=== PATIENT | female | born 1950 | race Caucasian/White ===

== ENCOUNTER 2017-01-10 07:06 | Inpatient (IN) | payer OTHER ==
[2016-12-24 13:21] VITALS: BMI 24.0
--- NOTE | 2016-12-24 13:54 | PAT Medication Instructions ---
Service Date Dec 24, 2016. Current Home Medication List Aspirin (Aspirin Ec), 81 MG PO HS Atorvastatin (Lipitor), 10 MG PO HS Calcium Carbonate-Vitamin D (Calcium + D), 1 TAB PO QAM Coenzyme Q10 (Ubidecarenone) (Co Q-10), 100 MG PO QAM Diclofenac Sodium (Topical) (Pennsaid), 1 DOSE TOP UD PRN for KNEE Flaxseed (Linseed) (Flaxseed Oil), 1 CAP PO BID Hydrocodone/Acetaminophen 5MG/325MG ([place] 5MG/325MG), 0.5 TABLET PO QID PRN for Pain Hydroxyzine Pamoate (Vistaril), 1 CAP PO HS PRN for Sleep Levothyroxine Sodium (Levothyroxine Sodium), 1 TAB PO QAM [Sun Chlorella], 6 TAB PO BID Medication Instructions For Your Scheduled Surgery - Hold the following medications 10 days prior to surgery: Sun Chlorella 6 TAB PO BID Flaxseed (Linseed) (Flaxseed Oil), 1 CAP PO BID Coenzyme Q10 (Ubidecarenone) (Co Q-10), 100 MG PO QAM - Hold the following medications 24 hours prior to surgery: Diclofenac Sodium (Topical) (Pennsaid), 1 DOSE TOP UD PRN for KNEE - Hold the following medications the morning of surgery: Calcium Carbonate-Vitamin D (Calcium + D), 1 TAB PO QAM - Take the following medications the morning of surgery with a sip of water: Levothyroxine Sodium (Levothyroxine Sodium), 1 TAB PO QAM Hydrocodone/Acetaminophen 5MG/325MG ([place] 5MG/325MG), 0.5 TABLET PO QID PRN for Pain (can take up to four hours prior to surgery if needed) - Take the following medications as scheduled the night before surgery: Hydroxyzine Pamoate (Vistaril), 1 CAP PO HS PRN for Sleep Hydrocodone/Acetaminophen 5MG/325MG ([place] 5MG/325MG), 0.5 TABLET PO QID PRN for Pain Atorvastatin (Lipitor), 10 MG PO HS Aspirin (Aspirin Ec), 81 MG PO HS If you have any questions please call us at [phone] or [phone] ( [place]) or [phone]
[2016-12-24 14:27] LABS: BASO % 0.6 %; BASO ABS # 0.04 K/uL (0-0.2); COMPLETE YES; EOS % 0.9 %; HEMATOCRIT 43.5 % (37-47); IG% 0.3 %; MEAN CELL VOLUME 91.6 fL (80-100); MEAN CORPUSCULAR HEMOGLOBIN 30.3 pg (25-34); MEAN CORPUSCULAR HGB CONC 33.1 g/dl (32-36); MEAN PLATELET VOLUME 9.7 fL (7.4-10.4); MONO % 6.1 %; NEUT % 59.1 %; PLATELET COUNT 213 K/uL (130-400); RED BLOOD COUNT 4.75 M/uL (4.2-5.4); WHITE BLOOD COUNT 6.36 K/uL (4.8-10.8)
[2016-12-24 14:35] LABS: INR 1.1 (0.9-1.1)
[2016-12-24 14:46] LABS: BUN/CREATININE RATIO 16.9 (10-20); CALCIUM 9.6 mg/dl (8.5-10.1); CREATININE 0.95 mg/dl (0.60-1.20); POTASSIUM 3.9 mmol/L (3.5-5.1)
--- NOTE | 2016-12-24 14:46 | DIAGNOSTIC IMAGING REPORT ---
CHEST PREADMISSION(PA/LAT) CLINICAL HISTORY: Preoperative chest COMPARISON STUDY: No previous studies for comparison. FINDINGS: The cardiac and mediastinal contours are normal. There is no evidence of focal pulmonary consolidation. There is no evidence of failure. No pleural effusions are visualized.[ IMPRESSION: No active disease in the chest. Electronically signed by: Lele Glass M.D. 12/24/2016 2:45 PM Dictated Date/Time: 12/24/2016 2:45 PM
[2016-12-24 15:06] LABS: URINE APPEARANCE CLEAR (CLEAR); URINE BILIRUBIN NEG (NEG); URINE COLOR YELLOW; URINE NITRITE NEG (NEG); URINE PH 5.5 (4.5-7.5); URINE SPECIFIC GRAVITY 1.016 (1.000-1.030); UROBILINOGEN NEG (NEG); ZZUR CULT IF INDIC CLEAN CATCH NO
[2016-12-24 15:11] LABS: MANUAL MICROSCOPIC REQUIRED? NO; REVIEW REQ? NO
--- NOTE | 2017-01-07 10:04 | HISTORY & PHYSICAL EXAMINATION ---
DATE OF ADMISSION: 01/10/2017 CHIEF COMPLAINT: Left hip pain. HISTORY OF PRESENT ILLNESS: Adamaris is a 66-year-old female with an 18-year history of pain in her left hip. She rates her pain a 10/10. She has pain with her daily activities. She has limited standing and walking tolerance. Pain is worse with weightbearing. The patient has been on hydrocodone. She has chronic kidney disease. She is unable to take anti-inflammatories. She has failed conservative treatment and is scheduled for left hip replacement. PAST MEDICAL HISTORY: Hypercholesterolemia, thyroid disease, history of renal cell carcinoma, GERD and osteoarthritis. She denies heart disease, diabetes or DVT. SOCIAL HISTORY: The patient denies alcohol or tobacco use. She lives in a 2-story home. She is and retired. FAMILY HISTORY: Negative for DVT. MEDICATIONS: Atorvastatin 10 mg daily, aspirin 81 mg daily, levothyroxine 25 mcg daily, calcium plus D, CoQ10 100 mg daily, flax seed oil 1200 mg 2 daily, hydroxyzine 25 mg, hydrocodone 1/2 tablet daily Pennsaid 1 daily. ALLERGIES: None. REVIEW OF SYSTEMS: See HPI. Ten other systems reviewed, all negative. PHYSICAL EXAMINATION: VITAL SIGNS: Height is 5 foot 6 inches, weight 153 pounds, BMI is 25. GENERAL: This is a well-developed, well-nourished female who is alert and oriented x3. Mood and affect are appropriate. HEENT: Normocephalic, atraumatic. Mucous membranes are moist and intact. NECK: Supple without lymphadenopathy. HEART: Regular rate and rhythm without murmurs, rubs or gallops. LUNGS: Clear to auscultation without wheezes or rhonchi. ABDOMEN: Soft and nontender. Bowel sounds are equal and active. EXTREMITIES: No ecchymosis, redness or warmth. Thigh and calf are soft and nontender. Log roll of the hip reproduces pain in the groin. She is neurovascularly intact. She walks with an antalgic gait. X-RAY EXAMINATION: AP and lateral views show joint space narrowing and osteophyte formation. IMPRESSION: Degenerative joint disease, left hip. PLAN: The patient will be admitted for a left anterior total hip arthroplasty. We will plan on aspirin for DVT prophylaxis. The patient needs caution with anti-inflammatories due to her nephrectomy. She will have [facility] for home physical therapy. PCP is Dr. Troncoso in [place].
[2017-01-10] VITALS (9 sets, daily range): BP systolic 100–130; BP diastolic 52–76; PULSE 57–93; TEMP 36.2–37; O2SAT 97–99; Ht 167.6 cm; Wt 69.2 kg
[~2017-01-10] VITALS: Ht 167.6 cm; Wt 69.2 kg
[~2017-01-10 07:06] MED LIST: ACETAMINOPHEN 500 MG TAB PO SCH; ASPI81TA28 PO; ATOR10TA88 PO; BUPIVACAINE 0.5 % 5 MG/1 ML PF 10ML VIAL ONE; CALC600T9 PO; CEFAZOLIN 2000 MG/60 ML D5W 60 ML IV SCH; COEN100C3 PO; DEXAMETHASONE 4 MG TAB PO SCH; DICL1SOL6 TOP; FAMOTIDINE 20 MG TAB PO SCH; FLAX12003 PO; GABAPENTIN 300 MG CAP PO SCH; HYDR-5688 PO; HYDR25CA PO; LACTATED RINGER'S 1000ML IV SCH; LEVO25TA5 PO; METOCLOPRAMIDE HCL 10 MG TAB PO SCH; OXYCODONE HCL 10 MG TABCR (OXYCONTIN) PO SCH; POLYMYXIN B SULFATE 100,000 UNITS in NSS 100ML IR SCH; ROPIVACAINE 5MG/ML 30 ML 150 MG, BUPIVACAINE/EPINEPHR 0.5% MPF 30 ML, KETOROLAC TROMETH... INFIL SCH; SUN CHLORELLA PO; VANCOMYCIN INJ 400 MG in NSS 100ML IR SCH
[2017-01-10] MEDS ORDERED: LIDOCAINE HCL 2% 2 ML VIAL (20MG/ML) ONE (07:18)
[2017-01-10] MEDS ORDERED: PROPOFOL IV EMULSION 10 MG/ML 20 ML VIAL IV ONE (07:18)
[2017-01-10] MEDS ORDERED: FENTANYL CITRATE INJ 50 MCG/1 ML 2 ML VIAL ONE (07:19)
[2017-01-10] MEDS ORDERED: MIDAZOLAM HCL 1 MG/ML 2ML VIAL ONE (07:19)
[2017-01-10] MEDS ORDERED: CYCL0.052 OP (07:32)
--- NOTE | 2017-01-10 08:23 | History & Physical Bridge Note ---
H&P Re-Evaluation Bridge Note: I have examined the patient, reviewed the History & Physical and in the interval since the performance of the History & Physical I have noted the following changes of clinical significance: No changes noted
[2017-01-10] MEDS ORDERED: POVIDONE-IODINE OP SOLN 30 ML BTL ONE (08:44)
[2017-01-10] MEDS ORDERED: BACITRACIN 50000 UNIT VIAL ONE (08:44)
[2017-01-10] MEDS ORDERED: ORTHO JOINT ANESTHETIC ONE (08:44)
[2017-01-10] MEDS ORDERED: LACTATED RINGER'S 1000ML 1,000 ML IV PRN (08:52)
[2017-01-10] MEDS: TRANEXAMIC ACID INJ 1,000 MG in SODIUM CHLORIDE 0.9% 100ML 100 ML IV SCH ×2 (08:58→12:13)
[2017-01-10] MEDS ORDERED: FENTANYL CITRATE INJ 50 MCG/1 ML 2 ML VIAL IV PRN (09:00)
[2017-01-10] MEDS ORDERED: ONDANSETRON INJ 2 MG/ML 2 ML VIAL IV PRN ×2 (09:00→10:45)
[2017-01-10] MEDS ORDERED: PHENYLEPHRINE 100MCG/ML 5ML SYR ONE (09:34)
[2017-01-10] MEDS ORDERED: EpHEDrine SULFATE INJ 50 MG/ML AMP ONE ×3 (09:34→11:54)
[2017-01-10] MEDS ORDERED: ONDANSETRON INJ 2 MG/ML 2 ML VIAL ONE (09:34)
--- NOTE | 2017-01-10 10:38 | [facility] Post Operative Brief Note ---
Immediate Operative Summary Operative Date Jan 10, 2017. Pre-Operative Diagnosis Left hip degenerative joint disease Post-Operative Diagnosis same as preoperative diagnosis Procedure(s) Performed Left Total Hip Arthroplasty, Direct Anterior Approach Surgeon Dr. Padilla Fireproof Door Assembler Surgeon(s) Jocelin Lagunas PA-C Estimated Blood Loss 100ML Findings DJD Specimens A. Left femoral head Complication(s) None Disposition Recovery Room / PACU
[2017-01-10] MEDS ORDERED: ZOLPIDEM TARTRATE 5 MG TAB PO PRN (10:45)
[2017-01-10] MEDS ORDERED: TRAMADOL HCL 50 MG TAB PO PRN (10:45)
[2017-01-10] MEDS ORDERED: DiphenhydrAMINE HCL 50 MG/ML VIAL IV PRN (10:45)
[2017-01-10] MEDS ORDERED: SOD PHOSPHATE/SOD BIPHOSPHATE ENEMA 132 ML BTL PR PRN (10:45)
[2017-01-10] MEDS ORDERED: MAGNESIUM HYDROXIDE SUSP 30 ML UDC PO PRN (10:45)
[2017-01-10] MEDS ORDERED: METOCLOPRAMIDE HCL INJ 5 MG/ML 2 ML VIAL IV PRN (10:45)
[2017-01-10] MEDS ORDERED: hydrOXYzine HCL 25 MG TAB PO PRN (10:45)
[2017-01-10] MEDS ORDERED: OXYCODONE HCL IR 5 MG TAB (IMMEDIATE RELEASE) PO PRN (10:45)
[2017-01-10] MEDS ORDERED: BISACODYL 10 MG SUPP PR PRN (10:45)
[2017-01-10] MEDS ORDERED: ALUMINUM/MAGNESIUM/SIMETH (MAALOX MAX) 30 ML UDC PO PRN (10:45)
[2017-01-10] MEDS ORDERED: MoRPHine SULFATE 2 MG/ML CARP IV PRN (10:45)
--- NOTE | 2017-01-10 11:11 | DIAGNOSTIC IMAGING REPORT ---
LEFT HIP UNILATERAL 1 VIEW CLINICAL HISTORY: LT TOTAL HIP ARTHROPLASTY COMPARISON: None. DISCUSSION: Image intensifier used for left hip total arthroplasty expected soft tissue postoperative change IMPRESSION: Image intensifier usage for a left hip arthroplasty Electronically signed by: Navjot Mai M.D. 01/10/2017 11:09 AM Dictated Date/Time: 01/10/2017 11:09 AM
[2017-01-10] MEDS ORDERED: NURSING VERBAL MED ORDER ONE (11:15)
--- NOTE | 2017-01-10 11:43 | DIAGNOSTIC IMAGING REPORT ---
LEFT PELVIS/UNILATERAL HIP 1 VIEW CLINICAL HISTORY: IN PACU - A/P PELVIS and LATERAL HIP INCLUDING ALL OF IMPLANT COMPARISON: None. DISCUSSION: Evidence for a total left hip arthroplasty. Curvilinear lucency medial to the tip of the femoral metallic shaft. This suggestive but is most likely consistent with a nutrient canal.. There is hip images is suggested at later date. There is no evidence for soft tissue swelling. IMPRESSION: Status post total left hip arthroplasty with prosthetic in good position. 2. Slightly unusual lucency adjacent to the tip of the femoral prosthetic. This is felt to be a normal nutrient canal, although the patient become symptomatic repeat filming would be indicated Electronically signed by: Navjot Mai M.D. 01/10/2017 11:41 AM Dictated Date/Time: 01/10/2017 11:37 AM
--- NOTE | 2017-01-10 12:03 | Anesthesiology Progress Note ---
Anesthesia Post Op Note Date & Time Jan 10, 2017 at 12:01 Vital Signs Pain Intensity: 0 Vital Signs Past 12 Hours Date Time Temp Pulse Resp B/P Pulse Ox O2 Delivery O2 Flow Rate FiO2 01/10/17 11:55 69 16 97/56 99 Nasal Cannula 2 01/10/17 11:45 68 16 100/57 99 Nasal Cannula 2 01/10/17 11:34 67 16 92/50 99 Nasal Cannula 2 01/10/17 11:25 67 16 93/55 99 Nasal Cannula 2 01/10/17 11:15 79 16 103/56 100 Mask 10 01/10/17 11:05 79 16 80/61 100 Mask 10 01/10/17 10:58 36.5 74 16 96/44 100 Mask 10 01/10/17 07:39 37 93 16 130/76 97 Room Air Notes Mental Status: alert / awake / arousable, participated in evaluation Pt Amnestic to Procedure: No Nausea / Vomiting: adequately controlled Pain: adequately controlled Airway Patency, RR, SpO2: stable & adequate BP & HR: stable & adequate Hydration State: stable & adequate Neuraxial Anesthesia: was administered, sensory block is resolving Anesthetic Complications: no major complications apparent Pt doing well. BP low end of normal but pt asymptomatic. This can mostly be attributed to residual effects of spinal. Stable now 90-100s/50s after finishing 2nd liter of fluid and IM ephedrine. Recall as expected.
[2017-01-10] MEDS: D5W AND 1/2NSS + 20MEQ KCL 1,000 ML IV SCH ×2 (13:04→23:13)
--- NOTE | 2017-01-10 14:22 | Discharge Instructions ---
Discharge Instructions Date of Service Jan 10, 2017. Admission Reason for Admission: Left Degenerative Arthritis- Pelvis/Thigh Primary Discharge Discharge Diagnosis / Problem: sp left total hip Discharge Goals Goal(s): Decrease discomfort, Improve function, Increase independence Activity Recommendations Activity Limitations: per Instructions/Follow-up section . Instructions / Follow-Up Instructions / Follow-Up ACTIVITY RECOMMENDATIONS: SELF CARE INSTRUCTIONS AFTER TOTAL HIP REPLACEMENT : Direct Anterior Approach Until the incision and soft tissues around your hip have healed, there is a possibility that the hip prosthesis could dislocate. A. Hip flexion ( Up & Down out of chair or steps ) may be difficult. This is normal. B. Numbness in front of the thigh is also normal for a few weeks. C. Use hand rails when walking on stairs. D. Wear low heeled shoes with non-slip soles. E. Be sure that your floors are free of things that could trip you - throw rugs , electrical cords, small objects. Avoid wet and waxed floors, especially with crutches and canes. F. Try to walk several times a day with rest periods between. G. Continue with all the exercises taught to you in the hospital. Again, make walking a part of your daily routine. SPECIAL CARE INSTRUCTIONS: VERY IMPORTANT TO READ AND REVIEW A. You may still be at risk for phlebitis and blood clots. 1. Wear surgical stockings (JOSE hose) for 2 weeks after surgery to improve circulation and reduce swelling. 2. Take Aspirin 81mg twice daily for 4 weeks or as directed by your doctor. This is your blood thinner. 3. High risk patients may be prescribed a stronger blood thinner if necessary. 4. If you are on Coumadin normally, your family doctor/fibre cement moulder should monitor your blood work. Expect a phone call the day of or the day after bloodwork is drawn to adjust your dosage. B. You must take antibiotics before having dental work, bladder, bowel and other surgery. Your doctor will provide you with a permanent card to carry describing precautions. C. Call [facility] if you have a fever, redness or swelling around the incision, cloudy drainage from incision, or sudden increase in pain in your hip, not relieved by your regular pain medication. D. Please call the office at if you have any concerns or questions about your operation or recovery. * YOU MAY SHOWER, NO TUB BATHS UNTIL CLEARED BY YOUR DOCTOR. - Keep an extra close eye on the top portion of your incision. Be sure to keep clean & dry. * WEAR JOSE HOSE 20 HOURS PER DAY FOR 2 WEEKS. * YOU MAY PROGRESS FROM A WALKER, TO A CANE, TO INDEPENDENT AT YOUR OWN PACE. * MOST PATIENTS WILL HAVE HOME NURSING FOR THERAPY. IF YOU DECIDE TO DO OUTPATIENT PHYSICAL THERAPY, PLEASE SCHEDULE THIS 3 TIMES PER WEEK. * DERMABOND Prineo- This is a mesh tape dressing that is covered with glue. It should remain in place until the incision is properly healed, usually 10-14 days. This dressing is designed to naturally slough off. You may trim the excess mesh tape as it peels off. Incision may be briefly wet in a shower. Dry immediately by blotting with a clean, dry towel. Do not bath or swim until instructed by your doctor. Do not scratch, rub, or pick at the dressing. Do not apply any topical ointments or lotions until dressing is completely removed and/or instructed by your doctor. There may be a small piece of suture material at one end of your incision. Do not pull or trim this. If it is bothersome or catching on clothing, you may cover it with a band-aid. FOLLOW UP VISIT: If appointment is not already scheduled: Please call [facility] to make a follow-up appointment for 2 weeks after your surgery at . Current Hospital Diet Patient's current hospital diet: Regular Diet Discharge Diet Recommended Diet: Regular Diet Procedures Procedures Performed: Left Total Hip Arthroplasty, Direct Anterior Approach Pending Studies Studies pending at discharge: no Medical Emergencies . Who to Call and When: Medical Emergencies: If at any time you feel your situation is an emergency, please call 911 immediately. . Non-Emergent Contact Non-Emergency issues call your: Surgeon . "Provider Documentation" section prepared by Jocelin Lagunas. VTE Core Measure Inpt VTE Proph given/why not?: Other Anticoagulation, T.E.D. Stockings, SCD's
--- NOTE | 2017-01-10 15:01 | OPERATIVE REPORT ---
DATE OF OPERATION: 01/10/2017 PREOPERATIVE DIAGNOSIS: Degenerative arthritis, left hip. POSTOPERATIVE DIAGNOSIS: Same. PROCEDURE: Left total hip replacement. SURGEON: David Padilla MD METROLOGY TECHNICIAN: CRISTAL Cheung ANESTHESIA: Spinal. BLOOD LOSS: 100 mL. REPLACEMENT FLUIDS: 1100 mL crystalloid. DRAINS: Hemovacs x1. CULTURES: None. COMPLICATIONS: None. COMPONENTS USED: [employer] hip system: Acetabulum size 52, femur size 6 standard offset, femoral head 0, and neck length 36 mm. NOTE: CRISTAL Cheung was present and assisted throughout due to the complicated nature of this case. She helped with preparation and set up, first assisted throughout, and personally losed the fascial, subcutaneous and skin layers and applied the postoperative dressing. DESCRIPTION OF PROCEDURE: Following satisfactory spinal, the patient was supine. The left leg was placed in the traction device and the right leg in the well leg morelos, the left leg was prepared with ChloraPrep and draped sterilely. Following a surgical time-out, an anterior approach in the interval between and sartorius and tensor muscles was completed and the circumflex femoral vessels were identified and ligated. An anterior capsulotomy was performed exposing an arthritic femoral neck and head. Femoral neck and head were trimmed and removed. The acetabular self-retraining retractor was placed. Acetabular reaming was completed and under fluoroscopic guidance, a 52 shell was impacted into an anatomic position and secured with a dome screw. Local anesthetic was placed and after irrigation, the poly liner was placed. The femur was placed in a position of external rotation, extension and adduction. Femoral canal was prepared up to the size 6. Trial reduction using a 0 neck length head with fluoroscopy showed good cheondoism of leg lengths using anatomic landmarks and good fit and fill of the proximal canal. The hip was dislocated. The trial component was removed. The final implant, after irrigation, was placed and the hip was reduced with fluoroscopy confirming the position. A Betadine soak was performed. After 5 minutes, the Betadine was irrigated. The capsule was closed with 1 Vicryl interrupted. A drain was placed. The fascia was then closed with a running suture of #1 Vicryl, the subcutaneous tissues with 2-0 Vicryl and the skin with a running subcuticular stitch of 3-0 V-Loc. Dermabond and a dry dressing were applied. The patient was returned to her bed in stable condition. I attest to the content of the Intraoperative Record and any orders documented therein. Any exceptio ns are noted below.
[2017-01-10] MEDS: CEFAZOLIN IV 1,000 MG in DEXTROSE 5% 50ML 50 ML IV SCH ×2 (16:40→23:42)
[2017-01-10] MEDS: ACETAMINOPHEN 500 MG TAB PO SCH ×2 (16:41→23:42)
[2017-01-10] MEDS ORDERED: TRANEXAMIC ACID INJ 1,000 MG in SODIUM CHLORIDE 0.9% 100ML 100 ML IV SCH (17:00)
[2017-01-10] MEDS: ASPIRIN 81 MG ECTAB PO SCH (20:47)
[2017-01-10] MEDS ORDERED: ATORVASTATIN 10 MG TAB PO SCH (21:00)
[2017-01-10] MEDS ORDERED: SENNA 8.6 MG TAB PO SCH (21:00)
[2017-01-11 03:25] VITALS: BP 93/46; PULSE 66; TEMP 36.7; O2SAT 96
[2017-01-11] MEDS ORDERED: LEVOTHYROXINE 25 MCG TAB PO SCH (06:00)
[2017-01-11 07:26] VITALS: BP 110/60; PULSE 60; TEMP 36.8; O2SAT 95
--- NOTE | 2017-01-11 07:53 | Anesthesiology Progress Note ---
Anesthesia Post Op Note Date & Time Jan 11, 2017 at 07:53 Vital Signs Pain Intensity: 0.0 Vital Signs Past 12 Hours Date Time Temp Pulse Resp B/P Pulse Ox O2 Delivery O2 Flow Rate FiO2 01/11/17 07:26 36.8 60 16 110/60 95 Room Air 01/11/17 03:25 36.7 66 16 93/46 96 Room Air 01/10/17 23:40 Room Air 01/10/17 23:05 36.3 78 16 112/52 98 Room Air Notes Mental Status: alert / awake / arousable, participated in evaluation Pt Amnestic to Procedure: Yes Nausea / Vomiting: adequately controlled Pain: adequately controlled Airway Patency, RR, SpO2: stable & adequate BP & HR: stable & adequate Hydration State: stable & adequate Neuraxial Anesthesia: sensory block resolved Anesthetic Complications: no major complications apparent
[2017-01-11] MEDS ORDERED: CALCIUM 600MG + VIT D 400 IU TAB PO SCH (09:00)
[2017-01-11] MEDS ORDERED: PANTOprazole SOD 40 MG TAB PO SCH (09:00)
[2017-01-11] MEDS ORDERED: MULTIVITAMIN TAB PO SCH (09:00)
[2017-01-11] MEDS: D5W AND 1/2NSS + 20MEQ KCL 1,000 ML IV SCH (09:05)
[2017-01-11] MEDS: ASPIRIN 81 MG ECTAB PO SCH (09:06)
[2017-01-11] MEDS: ACETAMINOPHEN 500 MG TAB PO SCH ×2 (09:06→16:38)
[2017-01-11 11:18] VITALS: BP 102/62; PULSE 69; TEMP 36.5; O2SAT 98
--- NOTE | 2017-01-11 11:39 | Orthopedic Progress Note ---
Orthopedic Progress Note Date of Service Jan 11, 2017. Subjective Post OP Day: 1 Reports: feeling well, Denies: SOB, calf pain, chest pain, light headedness, nausea / vomiting Objective calves soft nontender, N/V intact, hip located, dressing C/D/I, A&O x3, toes mobile Date Time Temp Pulse Resp B/P Pulse Ox O2 Delivery O2 Flow Rate FiO2 01/11/17 11:18 36.5 69 16 102/62 98 Room Air 01/11/17 09:54 Room Air 01/11/17 07:26 36.8 60 16 110/60 95 Room Air 01/11/17 03:25 36.7 66 16 93/46 96 Room Air 01/10/17 23:40 Room Air 01/10/17 23:05 36.3 78 16 112/52 98 Room Air 01/10/17 19:20 36.4 57 17 113/61 98 Room Air 01/10/17 16:20 99 Nasal Cannula 2.0 01/10/17 15:28 36.4 67 18 101/58 99 Nasal Cannula 2.0 01/10/17 14:28 65 18 100/59 98 Nasal Cannula 2.0 01/10/17 13:31 77 16 103/61 98 Nasal Cannula 2.0 01/10/17 12:59 65 16 110/61 98 Nasal Cannula 2.0 01/10/17 12:30 98 Nasal Cannula 2.0 01/10/17 12:30 98 Nasal Cannula 2.0 01/10/17 12:30 36.2 77 16 100/61 98 Nasal Cannula 2.0 01/10/17 12:15 36.2 74 16 101/57 99 Nasal Cannula 2 01/10/17 12:05 36.2 73 16 101/58 99 Nasal Cannula 2 01/10/17 11:55 69 16 97/56 99 Nasal Cannula 2 01/10/17 11:45 68 16 100/57 99 Nasal Cannula 2 Assessment & Plan Assessment: POD 1 s/p Left ART Plan: PT/OT Planning for home with Home Health PT tomorrow Inhouse Planning Pain Management: Ultram, Morphine, PO Tylenol, Oxy IR DVT Prophylaxis: TEDs, SCDs, ASA Discharge Planning Discharge Planning: home with home health Pain Management: PO Tylenol, Oxy IR DVT Prophylaxis: TEDs, ASA Therapy: Physical Therapy
[2017-01-11] MEDS ORDERED: RXC5 PO (14:30)
[2017-01-11] MEDS ORDERED: ASPI81TA28 PO (14:30)
[2017-01-11] MEDS ORDERED: ACET-1138 PO (14:30)
[2017-01-11] MEDS ORDERED: ONDA8TAB6 PO (14:30)
[2017-01-11] MEDS ORDERED: SNK PO (14:30)
[2017-01-11 14:45] VITALS: BP 102/62; PULSE 69; TEMP 36.5; O2SAT 98
[2017-01-11 15:33] VITALS: BP 99/60; PULSE 79; TEMP 36.8
--- NOTE | 2017-01-24 12:03 | DISCHARGE SUMMARY ---
DISCHARGE DIAGNOSIS: Degenerative joint disease, left hip. SECONDARY DIAGNOSIS: Chronic kidney disease. CONSULTS: None. COMPLICATIONS: None. PROCEDURE: The patient underwent a direct anterior left total hip arthroplasty with Dr. Padilla on 01/10/2017. BRIEF HISTORY: Please see previously dictated history and physical. HOSPITAL SUMMARY: The patient was admitted on the above day for the above procedure. Procedure went without complication. Postop day 1, the patient was feeling well without complaints. She denied chest pain or shortness of breath. Vital signs were stable. She was afebrile. Dressing was clean, dry and intact. She was neurovascularly intact. Calves were soft and nontender. The patient began physical therapy per protocol. She was discharged to home later that day in stable condition. For further review please see the chart. Lab, x-ray data and discharge instructions as per chart.
== END 2017-01-11 17:00 | disposition home health service (06) | DRG 470 ==
LOC: ENRESERVTM → ENRESERVDT → C.ACU 07:06 → C.3E 07:10
PROVIDERS: ADMIT Orthopaedic Surgery; ATTEND Orthopaedic Surgery
PROC: 0SRB04Z Replacement of Left Hip Joint with Ceramic on Polyethylene Synthetic Substitute, Open Approach (ICD-10-PCS; principal; 2017-01-10 09:15)
DX: M16.12 Unilateral primary osteoarthritis, left hip (principal); K21.9 Gastro-esophageal reflux disease without esophagitis; E78.00 Pure hypercholesterolemia, unspecified; N18.9 Chronic kidney disease, unspecified; E07.9 Disorder of thyroid, unspecified; R00.2 Palpitations; M54.5 Low back pain; M54.2 Cervicalgia; M54.10 Radiculopathy, site unspecified; Z86.19 Personal history of other infectious and parasitic diseases; Z90.5 Acquired absence of kidney; Z85.528 Personal history of other malignant neoplasm of kidney; Z79.82 Long term (current) use of aspirin; Z79.891 Long term (current) use of opiate analgesic; Z79.899 Other long term (current) drug therapy